=== PATIENT | male | born 1985 | race Caucasian/White ===

== ENCOUNTER 2022-11-19 12:23 | Emergency (ER) | payer BC, OTHER, SELFPAY ==
[2022-11-19] VITALS (39 sets, daily range): BP systolic 121–168; BP diastolic 66–96; PULSE 64–91; RESP 18; TEMP 36.7; O2SAT 95–100; BMI 40.6
--- NOTE | 2022-11-19 12:46 | CRLHL7_ITS ---
For Patients: As a result of the Century Cures Act, medical imaging exams and procedure reports are released immediately into your electronic medical record. You may view this report before your referring provider. If you have questions, please contact your health care provider. CLINICAL HISTORY: Right-sided numbness; blurred vision. TECHNIQUE: CTA neck with contrast bolus tracking. 3D angiographic rendering using maximum intensity projection (MIP) and images permanently archived. COMPARISON: None available. FINDINGS: The great vessels are patent. The common carotid arteries are patent. The proximal ICAs are patent without signficant stenoses by NASCET criteria. The more distal cervical ICAs are patent. The origins of the vertebral arteries are patent. The cervical segments of the vertebral arteries are patent. IMPRESSION: Patent cervical arterial vasculature without hemodynamically significant luminal stenosis. Please note that all CT scans at this facility use dose modulation, iterative reconstruction, and/or weight-based dosing when appropriate to reduce radiation dose to as low as reasonably achievable. Dictated by Michael Sandoval MD @ 11/19/2022 4:41:27 PM (Electronically Signed)
--- NOTE | 2022-11-19 12:46 | CRLHL7_ITS ---
For Patients: As a result of the Century Cures Act, medical imaging exams and procedure reports are released immediately into your electronic medical record. You may view this report before your referring provider. If you have questions, please contact your health care provider. Indication: Right-sided numbness, blurred vision history of tumor removal Technique: Volumetric multidetector CT images of the head were obtained without the administration of low osmolar intravenous contrast. Comparison: None available Findings: There is no intra-axial or extra-axial fluid collection. There is no mass effect or midline shift. There is mild cortical atrophy of the left cerebral hemisphere appreciated. The ventricles are grossly preserved in size and position. There is encephalomalacia of the left frontoparietal lobe status post tumor removal in craniotomy. The remaining brain parenchyma is otherwise preserved in attenuation and conner-white differentiation. The orbits and their contents are grossly within normal limits. Postoperative change of the left parietal bone status post craniotomy is again seen. There is mild mucosal thickening seen within the paranasal sinuses. The mastoid air cells are well aerated. Impression: Postoperative change status post left parietal craniotomy with resection of frontoparietal tumor and encephalomalacia. No evidence of acute intracranial abnormality. Please note that all CT scans at this facility use dose modulation, iterative reconstruction, and/or weight-based dosing when appropriate to reduce radiation dose to as low as reasonably achievable. Dictated by Tripp Paige MD @ 11/19/2022 2:12:43 PM (Electronically Signed)
--- NOTE | 2022-11-19 12:46 | CRLHL7_ITS ---
For Patients: As a result of the Century Cures Act, medical imaging exams and procedure reports are released immediately into your electronic medical record. You may view this report before your referring provider. If you have questions, please contact your health care provider. CLINICAL HISTORY: Right-sided numbness; blurred vision. TECHNIQUE: CTA head with contrast bolus tracking. 3D angiographic rendering using maximum intensity projection (MIP) and images permanently archived. COMPARISON: None available. FINDINGS: The petrous, cavernous, and supraclinoid segments of the internal carotid arteries are patent. The anterior and middle cerebral arteries are patent. The anterior communicating artery is visualized and is within normal limits. The intracranial vertebral arteries, basilar trunk, and posterior cerebral arteries are patent. No intracranial proximal large vessel occlusion or flow-limiting luminal stenosis. No evidence of cerebral aneurysm. No findings to suggest an arterial-venous shunting lesion. IMPRESSION: No intracranial proximal large vessel occlusion, flow-limiting luminal stenosis, or cerebral aneurysm. Please note that all CT scans at this facility use dose modulation, iterative reconstruction, and/or weight-based dosing when appropriate to reduce radiation dose to as low as reasonably achievable. Dictated by Michael Sandoval MD @ 11/19/2022 4:39:24 PM (Electronically Signed)
[2022-11-19 13:26] LABS: Basophils Absolute Auto 0.05 K/uL (0.00-0.30); Basophils Percent Auto 0.6 % (0.0-3.0); Eosinophils Absolute Auto 0.23 K/uL (0.00-0.50); Eosinophils Percent Auto 2.7 % (0.0-7.0); Hematocrit 42.8 % (37.0-53.0); Hemoglobin* 14.4 gm/dL (13.5-17.5); Immature Granulocytes Abs Auto 0.02 K/uL (0.00-0.30); Immature Granulocytes Pct Auto 0.2 %; Lymphocytes Absolute Auto 2.08 K/uL (0.90-2.90); Lymphocytes Percent Auto 24.6 % (20-44); Mean Corpuscular HGB Conc 34 gm/dL (32-36); Mean Corpuscular Hemoglobin 31 pg (26-34); Mean Corpuscular Volume 93 fL (80-100); Monocytes Percent Auto 10.9 % (0.0-11.0); Neutrophils Absolute Auto 5.16 K/uL (1.7-7.0); Platelet Count* 212 K/uL (140-440); Red Blood Count 4.62 m/uL (4.30-5.90); White Blood Count* 8.46 K/uL (4.50-11.00)
[2022-11-19 13:29] LABS: Slide Review Reflex No
[2022-11-19 13:41] LABS: Chloride* 105 mmol/L (96-114); Potassium* 3.7 mmol/L (3.6-5.1); Sodium* 143 mmol/L (135-149)
[2022-11-19 13:44] LABS: Anion Gap 8 mEq/L (7-15); Blood Urea Nitrogen* 20 mg/dL (5-24); Carbon Dioxide* 30 mmol/L (20-32); Creatinine* 1.1 mg/dL (0.5-1.5); Estimated Glomerular Filt Rate 88 ml/min; Glucose* 92 mg/dL (60-115)
[2022-11-19 13:45] LABS: Calcium* 9.6 mg/dL (8.4-10.6); Magnesium* 1.9 mg/dL (1.5-2.6)
[2022-11-19 14:07] LABS: Troponin I* < 0.01 ng/mL (0.01-0.04)
[2022-11-19] MEDS: diphenhydrAMINE 50 MG/ML inj 25 MG IVP (14:35)
[2022-11-19] MEDS: METOCLOPRAMIDE HCL 5 MG/ML INJ 10 MG IVP (14:35)
[2022-11-19] MEDS: LACTATED RINGERS 1000 ML 1,000 ML IV (14:36)
--- NOTE | 2022-11-19 15:39 | ED.NURSE ---
MD gave verbal orders to stop Q30 vitals and neuro assessments
[2022-11-19] MEDS: KETOROLAC 15 MG/ML inj IVP (15:56)
--- NOTE | 2022-11-19 16:30 | CRLHL7_ITS ---
For Patients: As a result of the Century Cures Act, medical imaging exams and procedure reports are released immediately into your electronic medical record. You may view this report before your referring provider. If you have questions, please contact your health care provider. INDICATION: Transient ischemic attacks, history of grade 3 astrocytoma. TECHNIQUE : Multisequence multiplanar MRI of the head before and following administration of 15 mL of gadolinium-based intravenous contrast. COMPARISON: MRI brain dated 11/23/2013 (in [place]) FINDINGS: Operative changes left frontoparietal craniotomy for mass resection with similar underlying dural thickening and blood degradation products. No new or suspicious nodular enhancement at the resection cavity margins. Similar degree of surrounding T2/FLAIR hyperintensity including a focal T2 hyperintensity adjacent to the left lateral ventricle (series 3, image 40) with mild associated hyperintensity on diffusion-weighted imaging. No evidence of acute ischemia. Similar mild ex vacuo dilatation of the atrium of left lateral ventricle. Flow voids of the larger intracranial arteries are preserved. Similar maxillary sinus retention cysts and scattered paranasal sinus mucosal thickening. IMPRESSION: 1. No acute intracranial abnormality. 2. No convincing evidence for progressive disease since prior study dated 11/23/2013. 3. Similar appearance of T2/FLAIR hyperintensity about the resection cavity including a focal T2 hyperintensity adjacent to the left lateral ventricle with apparent mild associated reduced diffusion. Dictated by Toby Head MD @ 11/19/2022 6:12:53 PM (Electronically Signed)
--- NOTE | 2022-11-19 18:30 | ED.GENADULT ---
HPI - General Adult General Date Seen: 11/19/22 Chief complaint: Neuro Symptoms/Altered Deficit Stated complaint: R side body numb, vision blurred Time Seen by Provider: 11/19/22 12:38 Source: patient Mode of arrival: ambulatory Limitations: no limitations History of Present Illness HPI narrative: Patient is a 37-year-old male with a history of a grade 3 astrocytoma presenting to the emergency department for right-sided numbness, vision changes, slurred speech. He states his symptoms started around 10:00 this morning. They have been gradually improving or not going away so he came to the emergency department. By the time he was in the emergency department symptoms have completely subsided. States the last time he had symptoms like this was 10 years ago when he had his astrocytoma. He had surgically removed. He has close follow-up with his neurologist and get an MRI every 6 months that has not showing any new mass. States this time he was having a headache. Denies fevers, chills, chest pain, shortness of breath, abdominal pain, diarrhea, dizziness, lightheadedness. Related Data Allergies Allergy/AdvReac Type Severity Reaction Status Date / Time No Known Drug Allergies Allergy Verified 11/19/22 13:12 Review of Systems Status of ROS: Reports: 10 or more systems reviewed and unremarkable except as noted in History and below [facility] Social History Smoking Status: Never smoker How often do you have a drink containing alcohol: never AUDIT-C Alcohol total score: 0 Non-prescribed substance use: denies use Exam Narrative: Exam Narrative: Const: Well-nourished, Well-developed, in mild distress Eyes: PERRL, no conjunctival injection, and symmetrical lids ENMT: Atraumatic external nose and ears. Moist mucous membranes. Neck: Symmetric, trachea midline, No thyromegaly. CVS: RRR, No murmurs or gallops. Peripheral pulses 2+ and equal in all extremities RESP: Unlabored respiratory effort. Clear to auscultation bilaterally. GI: Nontender/Nondistended, No rebound or guarding. MSK:Extremities w/o deformity, Normal Active ROM Skin: Warm, Dry. No rashes or lesions. Neuro: Normal Muscle tone, Cranial nerves 2-12 grossly intact, normal [id number], normal [id number], normal gait, normal strength 5/5 upper lower extremities bilaterally, normal sensation upper and lower extremities bilaterally, normal rapid alternating movements. Psych: Awake, Alert, & Oriented x3. Appropriate mood and affect. Const: Vital Signs, click to edit/add: Vital Signs - 24 hr 11/19/22 12:47 11/19/22 13:15 11/19/22 13:17 Temperature 98.0 F Pulse Rate 75 74 Pulse Rate [Pulse Oximeter] 91 Respiratory Rate 18 Blood Pressure 128/86 Blood Pressure [Ri ght Upper Arm] 168/96 H Pulse Oximetry 98 98 96 Oxygen Delivery Me thod Room Air 11/19/22 13:18 11/19/22 13:30 11/19/22 13:32 Temperature Pulse Rate 78 74 65 Pulse Rate [Pulse Oximeter] Respiratory Rate Blood Pressure 131/77 Blood Pressure [Ri ght Upper Arm] Pulse Oximetry 98 99 99 Oxygen Delivery Me thod 11/19/22 13:45 11/19/22 13:47 11/19/22 13:48 Temperature Pulse Rate 72 68 67 Pulse Rate [Pulse Oximeter] Respiratory Rate Blood Pressure 145/82 H Blood Pressure [Ri ght Upper Arm] Pulse Oximetry 97 98 97 Oxygen Delivery Pa thod 11/19/22 14:00 11/19/22 14:03 11/19/22 14:15 Temperature Pulse Rate 72 66 73 Pulse Rate [Pulse Oximeter] Respiratory Rate Blood Pressure 127/66 Blood Pressure [Ri ght Upper Arm] Pulse Oximetry 96 98 95 Oxygen Delivery Me thod 11/19/22 14:17 11/19/22 14:30 11/19/22 14:32 Temperature Pulse Rate 65 69 64 Pulse Rate [Pulse Oximeter] Respiratory Rate Blood Pressure 125/85 134/81 Blood Pressure [Ri ght Upper Arm] Pulse Oximetry 99 100 100 Oxygen Delivery Pa thod 11/19/22 14:45 11/19/22 14:47 11/19/22 14:48 Temperature Pulse Rate 78 76 76 Pulse Rate [Pulse Oximeter] Respiratory Rate Blood Pressure 135/78 Blood Pressure [Ri ght Upper Arm] Pulse Oximetry 97 96 97 Oxygen Delivery Me thod 11/19/22 15:00 11/19/22 15:02 11/19/22 15:05 Temperature Pulse Rate 72 70 81 Pulse Rate [Pulse Oximeter] Respiratory Rate Blood Pressure 127/73 Blood Pressure [Ri ght Upper Arm] Pulse Oximetry 97 95 95 Oxygen Delivery Me thod 11/19/22 15:15 11/19/22 15:30 11/19/22 15:32 Temperature Pulse Rate 67 67 65 Pulse Rate [Pulse Oximeter] Respiratory Rate Blood Pressure 121/83 Blood Pressure [Ri ght Upper Arm] Pulse Oximetry 99 99 98 Oxygen Delivery Me thod 11/19/22 15:33 11/19/22 15:45 11/19/22 16:00 Temperature Pulse Rate 69 75 73 Pulse Rate [Pulse Oximeter] Respiratory Rate Blood Pressure Blood Pressure [Ri ght Upper Arm] Pulse Oximetry 99 98 98 Oxygen Delivery Me thod 11/19/22 16:02 11/19/22 16:15 11/19/22 17:17 Temperature Pulse Rate 76 68 73 Pulse Rate [Pulse Oximeter] Respiratory Rate Blood Pressure 125/78 137/85 Blood Pressure [Ri ght Upper Arm] Pulse Oximetry 98 98 97 Oxygen Delivery Me thod 11/19/22 17:18 11/19/22 17:30 11/19/22 17:32 Temperature Pulse Rate 68 71 73 Pulse Rate [Pulse Oximeter] Respiratory Rate Blood Pressure 137/84 Blood Pressure [Ri ght Upper Arm] Pulse Oximetry 98 98 99 Oxygen Delivery Me thod 11/19/22 17:45 Temperature Pulse Rate 76 Pulse Rate [Pulse Oximeter] Respiratory Rate Blood Pressure Blood Pressure [Ri ght Upper Arm] Pulse Oximetry 97 Oxygen Delivery Me thod Course Vital Signs Vital signs: Initial Vital Signs Temperature 98.0 F 11/19/22 12:47 Temperature Source Temporal Artery Scan 11/19/22 12:47 Pulse Rate 91 11/19/22 12:47 Pulse Rhythm Regular 11/19/22 12:47 Respiratory Rate 18 11/19/22 12:47 Blood Pressure 168/96 H 11/19/22 12:47 Blood Pressure Mean 120 H 11/19/22 12:47 Blood Pressure Position Supine 11/19/22 12:47 Pulse Oximetry 98 11/19/22 12:47 Oxygen Delivery Method Room Air 11/19/22 12:47 Vital Signs Temperature 98.0 F 11/19/22 12:47 Pulse Rate 91 11/19/22 12:47 Respiratory Rate 18 11/19/22 12:47 Blood Pressure 168/96 H 11/19/22 12:47 Pulse Oximetry 98 11/19/22 12:47 Oxygen Delivery Method Room Air 11/19/22 12:47 Temperature 98.0 F 11/19/22 12:47 Pulse Rate 76 11/19/22 17:45 Respiratory Rate 18 11/19/22 12:47 Blood Pressure 137/84 11/19/22 17:32 Pulse Oximetry 97 11/19/22 17:45 Oxygen Delivery Method Room Air 11/19/22 12:47 Medical Decision Making MDM Narrative Medical decision making narrative: Patient is a 37-year-old male presented emergency department for stroke-like symptoms. By the time of my evaluation his NIH stroke scale is 0. He has had symptoms like this in the past with his astrocytoma and there is concerned he could be developing another tumor. In the symptoms have resolved we did send him straight to CT and CTA head and neck. Was very for those results to come back if spoke to Dr. Radha Garcia of [facility] neurology. She is in agreement with me that this is unlikely to be a stroke at this time with symptoms fully resolve. It could have been a TIA. He is in agreement to get an MRI with and without contrast at today. Also ordered a CBC, BMP, EKG, magnesium, troponin. Lab work all returned showing no concerning abnormalities. His developing headache and a migraine cocktail was given. He is also given Toradol. However this is headache did improve. CT scan showed no concerning abnormalities. As able get hold of his neurologist Dr. Charlie Molina of the [facility]. He is in agreement with the plan also. He states he will have close follow-up with the patient if everything is normal. He also recommended to start the patient on a daily baby aspirin. Patient received his MRI is shows no acute abnormalities. I did speak to Dr. Garcia again as she requested. Since there is no focal signs for a seizure on the imaging she does not recommend starting Keppra at this time. Patient be discharged home was formed to follow-up with his neurologist tomorrow morning. He is started on aspirin. He is agreeable to this plan Lab Data Labs: Lab Results 11/19/22 Range/Units 12:40 WBC 8.46 (4.50-11.00) K/uL RBC 4.62 (4.30-5.90) m/uL Hgb 14.4 (13.5-17.5) gm/dL Hct 42.8 (37.0-53.0) % MCV 93 (80-100) fL MCH 31 (26-34) pg MCHC 34 (32-36) gm/dL RDW Coeff of [place] 12.0 (11.5-15.5) % Plt Count 212 (140-440) K/uL Neut % (Auto) 61.0 (42.0-72.0) % Lymph % (Auto) 24.6 (20-44) % Curry % (Auto) 10.9 (0.0-11.0) % Eos % (Auto) 2.7 (0.0-7.0) % Baso % (Auto) 0.6 (0.0-3.0) % Neut # (Auto) 5.16 (1.7-7.0) K/uL Lymph # (Auto) 2.08 (0.90-2.90) K/uL Curry # (Auto) 0.90 (0.00-0.90) K/UL Eos # (Auto) 0.23 (0.00-0.50) K/uL Baso # (Auto) 0.05 (0.00-0.30) K/uL Abs Immat Gran (auto) 0.02 (0.00-0.30) K/uL Imm/Tot Granulo (auto) 0.2 % Sodium 143 (135-149) mmol/L Potassium 3.7 (3.6-5.1) mmol/L Chloride 105 (96-114) mmol/L Carbon Dioxide 30 (20-32) mmol/L Anion Gap 8 (7-15) mEq/L BUN 20 (5-24) mg/dL Creatinine 1.1 (0.5-1.5) mg/dL Estimated GFR 88 ml/min Glucose 92 (60-115) mg/dL Calcium 9.6 (8.4-10.6) mg/dL Magnesium 1.9 (1.5-2.6) mg/dL Troponin I < 0.01 L (0.01-0.04) ng/mL Imaging Data Head CT: Radiologist's impression: Indication: Right-sided numbness, blurred vision history of tumor removal Technique: Volumetric multidetector CT images of the head were obtained without the administration of low osmolar intravenous contrast. Comparison: None available Findings: There is no intra-axial or extra-axial fluid collection. There is no mass effect or midline shift. There is mild cortical atrophy of the left cerebral hemisphere appreciated. The ventricles are grossly preserved in size and position. There is encephalomalacia of the left frontoparietal lobe status post tumor removal in craniotomy. The remaining brain parenchyma is otherwise preserved in attenuation and conner-white differentiation. The orbits and their contents are grossly within normal limits. Postoperative change of the left parietal bone status post craniotomy is again seen. There is mild mucosal thickening seen within the paranasal sinuses. The mastoid air cells are well aerated. Impression: Postoperative change status post left parietal craniotomy with resection of frontoparietal tumor and encephalomalacia. No evidence of acute intracranial abnormality. Please note that all CT scans at this facility use dose modulation, iterative reconstruction, and/or weight-based dosing when appropriate to reduce radiation dose to as low as reasonably achievable. Dictated by Tripp Paige MD @ 11/19/2022 2:12:43 PM CTA neck: Radiologist's impression: CLINICAL HISTORY: Right-sided numbness; blurred vision. TECHNIQUE: CTA neck with contrast bolus tracking. 3D angiographic rendering using maximum intensity projection (MIP) and images permanently archived. COMPARISON: None available. FINDINGS: The great vessels are patent. The common carotid arteries are patent. The proximal ICAs are patent without signficant stenoses by NASCET criteria. The more distal cervical ICAs are patent. The origins of the vertebral arteries are patent. The cervical segments of the vertebral arteries are patent. IMPRESSION: Patent cervical arterial vasculature without hemodynamically significant luminal stenosis. Please note that all CT scans at this facility use dose modulation, iterative reconstruction, and/or weight-based dosing when appropriate to reduce radiation dose to as low as reasonably achievable. Dictated by Michael Sandoval MD @ 11/19/2022 4:41:27 PM CTA head: Radiologist's impression: CLINICAL HISTORY: Right-sided numbness; blurred vision. TECHNIQUE: CTA head with contrast bolus tracking. 3D angiographic rendering using maximum intensity projection (MIP) and images permanently archived. COMPARISON: None available. FINDINGS: The petrous, cavernous, and supraclinoid segments of the internal carotid arteries are patent. The anterior and middle cerebral arteries are patent. The anterior communicating artery is visualized and is within normal limits. The intracranial vertebral arteries, basilar trunk, and posterior cerebral arteries are patent. No intracranial proximal large vessel occlusion or flow-limiting luminal stenosis. No evidence of cerebral aneurysm. No findings to suggest an arterial-venous shunting lesion. IMPRESSION: No intracranial proximal large vessel occlusion, flow-limiting luminal stenosis, or cerebral aneurysm. Please note that all CT scans at this facility use dose modulation, iterative reconstruction, and/or weight-based dosing when appropriate to reduce radiation dose to as low as reasonably achievable. Dictated by Michael Sandoval MD @ 11/19/2022 4:39:24 PM MRI brain with and without contrast: Radiologist's impression: INDICATION: Transient ischemic attacks, history of grade 3 astrocytoma. TECHNIQUE : Multisequence multiplanar MRI of the head before and following administration of 15 mL of gadolinium-based intravenous contrast. COMPARISON: MRI brain dated 11/23/2013 (in [place]) FINDINGS: Operative changes left frontoparietal craniotomy for mass resection with similar underlying dural thickening and blood degradation products. No new or suspicious nodular enhancement at the resection cavity margins. Similar degree of surrounding T2/FLAIR hyperintensity including a focal T2 hyperintensity adjacent to the left lateral ventricle (series 3, image 40) with mild associated hyperintensity on diffusion-weighted imaging. No evidence of acute ischemia. Similar mild ex vacuo dilatation of the atrium of left lateral ventricle. Flow voids of the larger intracranial arteries are preserved. Similar maxillary sinus retention cysts and scattered paranasal sinus mucosal thickening. IMPRESSION: 1. No acute intracranial abnormality. 2. No convincing evidence for progressive disease since prior study dated 11/23/2013. 3. Similar appearance of T2/FLAIR hyperintensity about the resection cavity including a focal T2 hyperintensity adjacent to the left lateral ventricle with apparent mild associated reduced diffusion. Dictated by Toby Head MD @ 11/19/2022 6:12:53 PM ECG Data Attestation: I personally reviewed and interpreted this ECG as follows: Interpretation: Normal sinus rhythm rate of 63 beats per minute, normal intervals, normal axis, no ST or T-wave abnormalities. Discharge Plan Discharge Clinical Impression: Brain TIA Patient Disposition: Home, Self-Care Condition: Stable Instructions: Transient Ischemic Attack (ED) Additional Instructions: Call your neurologist, Dr. Charlie Molina, tomorrow morning to set up a follow-up appointment. Start taking a daily baby aspirin. Return for new or worsening symptoms Follow Up/Referrals: Provider,Not a Local [Primary Care Provider] - Stand Alone Forms: [employer] Info Instructions
== END 2022-11-19 18:37 | disposition home or self-care (01) ==
PROVIDERS: Emergency Provider Student in an Organized Health Care Education/Training Program
DX: G45.8 Other transient cerebral ischemic attacks and related syndromes (principal)
CPT/HCPCS: 36415; 70450; 70496; 70498; 70553; 80048; 83735; 84484; 85025; 93005; 96374; 96375; 99283; 99285; A9575; J1200; J1885; J2765; J7120; Q9967

== ENCOUNTER 2023-03-11 09:11 | Outpatient (CLI) | payer BC, OTHER, SELFPAY | END 2023-03-11 09:12 | disposition home or self-care (01) | PROVIDERS: PCP Family Medicine; Visit Provider Family Medicine | DX: Z00.00 Encounter for general adult medical examination without abnormal findings (principal); R53.83 Other fatigue; E66.9 Obesity, unspecified; E78.00 Pure hypercholesterolemia, unspecified | CPT/HCPCS: 80053; 80061; 84443 ==